=== PATIENT | female | born 1965 | race Caucasian/White ===

== ENCOUNTER 2024-05-12 12:06 | Emergency (ER) | payer OTHER, SELFPAY ==
[2024-05-12] VITALS (11 sets, daily range): BP systolic 170–194; BP diastolic 96–132; PULSE 65–88; RESP 16–18; TEMP 36.7; O2SAT 92–98; BMI 27.8
--- NOTE | 2024-05-12 12:13 | CTR_ITS ---
PROCEDURE INFORMATION: Exam: CT Head Without Contrast Exam date and time: 05/12/2024 12:06 PM Age: 59 years old Clinical indication: Stroke-like symptoms; Right facial droop; Additional info: AMS TECHNIQUE: Imaging protocol: Computed tomography of the head without contrast. Radiation optimization: All CT scans at this facility use at least one of these dose optimization techniques: automated exposure control; mA and/or kV adjustment per patient size (includes targeted exams where dose is matched to clinical indication); or iterative reconstruction. Other technique: STROKE PROTOCOL was implemented. COMPARISON: No relevant prior studies available. RADIATION DOSE METRICS: Total DLP (mGy-cm): 1041.08 FINDINGS: Brain: Diffuse cerebral atrophy. No hemorrhage. No evidence of acute territorial infarction. Evidence of chronic right basal ganglia infarct with asymmetrically small size and adjacent lateral ventricle ex vacuo dilatation. Marked diffuse bilateral cerebral white matter hypoattenuation. There is a heterogeneously calcified parasagittal posterior right frontal lobe mass appearing to involve the cortex measuring approximately 2.0 x 1.5 x 1.5 cm (AP x TV x CC) on axial image 46 of series 12 and coronal image 32 of series 13. There is also a 2.1 x 1.8 x 1.5 cm (TV x AP x CC) mass in the region of the hypothalamus. No midline shift. Cerebral ventricles: Ventricles are in proportion to the degree of atrophy with ex vacuo dilatation of the right lateral ventricle adjacent to diminutive basal ganglia. Paranasal sinuses: Visualized sinuses are unremarkable. No fluid levels. Mastoid air cells: Visualized mastoid air cells are well aerated. Bones: Unremarkable. No acute fracture. Soft tissues: Unremarkable. Vasculature: Bilateral ICA and vertebral artery calcifications. CT/CT head thrombolytic [id number] IMPRESSION: 1. No CT evidence of acute territorial infarction or hemorrhage. No midline shift. 2. Approximately 2 cm partially calcified parasagittal posterior right frontal lobe mass appearing to involve the cortex. 3. Approximately 2.1 cm mass in the region of the hypothalamus may represent hamartoma. 4. Marked diffuse bilateral cerebral white matter hypoattenuation. 5. Evidence of chronic right basal ganglia infarct. Recommend brain MRI without and with contrast to further evaluate above findings. ASSESSMENT: ASPECTS ([place] Stroke Program Early CT Score) is 10.
--- NOTE | 2024-05-12 12:28 | XRR_ITS ---
PROCEDURE INFORMATION: Exam: XR Chest Exam date and time: 05/12/2024 12:52 PM Age: 59 years old Clinical indication: Dyspnea; Additional info: CVA symptoms TECHNIQUE: Imaging protocol: Radiologic exam of the chest. Views: 1 view. COMPARISON: No relevant prior studies available. FINDINGS: Lungs: Unremarkable. No consolidation. Pleural spaces: Unremarkable. No pleural effusion. No pneumothorax. Heart/Mediastinum: Unremarkable. No cardiomegaly. Bones/joints: Mild degenerative disease of bilateral acromioclavicular joints. Right rotator cuff calcific tendinosis. Mild curvature of the thoracic spine convex to the right. XR/XR chest 1V portable [id number] IMPRESSION: No acute cardiopulmonary process.
--- NOTE | 2024-05-12 12:28 | CTR_ITS ---
PROCEDURE INFORMATION: Exam: CTA Head With Contrast, Arteriography Exam date and time: 05/12/2024 1:49 PM Age: 59 years old Clinical indication: Other: Msc; Patient HX: CVA symptoms; Lkwt 10:45 today; No known trauma/injury TECHNIQUE: Imaging protocol: Computed tomographic angiography of the head with contrast. Exam focused on the arteries. 3D rendering (Not supervised by radiologist): MIP and/or 3D reconstructed images were created by the technologist. Radiation optimization: All CT scans at this facility use at least one of these dose optimization techniques: automated exposure control; mA and/or kV adjustment per patient size (includes targeted exams where dose is matched to clinical indication); or iterative reconstruction. Contrast material: OMNIPAUQE 350; Contrast volume: 100 ml; Contrast route: INTRAVENOUS (IV); COMPARISON: CT head thrombolytic [id number] 05/12/2024 12:06 PM RADIATION DOSE METRICS: Total DLP (mGy-cm): 373.32 FINDINGS: ANTERIOR CIRCULATION: Right internal carotid artery: Calcified atheroma of the cavernous right ICA but no significant stenosis. Right middle cerebral artery: No occlusion or significant stenosis. No aneurysm. Right anterior cerebral artery: No occlusion or significant stenosis. No aneurysm. Left internal carotid artery: Intracranial segment is patent with no significant stenosis. No aneurysm. Left middle cerebral artery: No occlusion or significant stenosis. No aneurysm. Left anterior cerebral artery: No occlusion or significant stenosis. No aneurysm. POSTERIOR CIRCULATION: Right vertebral artery: Calcified atheroma of the V4 segment of the right vertebral artery with mild stenosis. Left vertebral artery: Calcified atheroma of the V4 segment of the left vertebral artery with severe stenosis. Basilar artery: No occlusion or significant stenosis. No aneurysm. Right posterior cerebral artery: No occlusion or significant stenosis. No aneurysm. Left posterior cerebral artery: No occlusion or significant stenosis. No aneurysm. Brain: Redemonstrated the 2.1 cm partially calcified parasagittal mass along the right frontal lobe. Stable 2.1 cm mass in the hypothalamic region. Chronic ischemic small vessel disease. Chronic right basal ganglia infarct. No recent infarct, or intracranial bleed. Cerebral ventricles: Mild ex vacuo dilatation of the right lateral ventricle. Bones/joints: Unremarkable. No acute fracture. Soft tissues: Unremarkable. PROCEDURE INFORMATION: Exam: CTA Neck With Contrast Exam date and time: 05/12/2024 1:49 PM Age: 59 years old Clinical indication: Other: Msc; Patient HX: CVA symptoms; Lkwt 10:45 today; No known trauma/injury TECHNIQUE: Imaging protocol: Computed tomographic angiography of the neck with contrast. Exam focused on the cervical segments of the vasculature. 3D rendering (Not supervised by radiologist): MIP and/or 3D reconstructed images were created by the technologist. Radiation optimization: All CT scans at this facility use at least one of these dose optimization techniques: automated exposure control; mA and/or kV adjustment per patient size (includes targeted exams where dose is matched to clinical indication); or iterative reconstruction. Contrast material: OMNIPAUQE 350; Contrast volume: 100 ml; Contrast route: INTRAVENOUS (IV); COMPARISON: CT head thrombolytic [id number] 05/12/2024 12:06 PM RADIATION DOSE METRICS: Total DLP (mGy-cm): 373.32 FINDINGS: Right common carotid artery: No stenosis. No dissection or occlusion. Right internal carotid artery: No stenosis of the extracranial segment. No dissection or occlusion. Right external carotid artery: No occlusion or stenosis of the origin. Left common carotid artery: No stenosis. No dissection or occlusion. Left internal carotid artery: Calcified atheroma of the proximal left ICA but no significant stenosis. Left external carotid artery: No occlusion or stenosis of the origin. Right vertebral artery: No stenosis. No dissection or occlusion. Left vertebral artery: No stenosis. No dissection or occlusion. Soft tissues: Normal. No significant soft tissue swelling. Bones/joints: Multilevel posterior osteophyte disc complexes at C4-C5, C5-C6 and C6-C7 with mild bony canal stenosis. CT/CT angio headneck* [id number] IMPRESSION: No large vessel occlusion. IMPRESSION: No significant stenosis. REFERENCES: NASCET CRITERIA. The degree of stenosis in the cervical segment of the internal carotid artery is based on NASCET criteria. Normal is no stenosis. Mild is less than 50% stenosis. Moderate is 50-69% stenosis. Severe is 70% to 99% stenosis. Total occlusion is no detectable patent lumen.
--- NOTE | 2024-05-12 12:29 | ECG_ITS ---
[facility] Test Date: 2024-05-12 Pat Name: Katia Valadez Department: Room: Gender: Female [employer]er [employer]: : 1965 Requested By: Timoteo Oliveira Order Number: [id number] Reading MD: JAIME MARTÍNEZ Measurements Intervals [place]ard Rate: 63 P: 37 LA: 211 QRS: 2 QRSD: 105 T: 19 QT: 386 QTc: 396 Interpretive Statements SINUS RHYTHM WITH FIRST DEGREE AV BLOCK No previous ECG available for comparison Electronically Signed On 05-12-2024 20:22:11 CDT by JAIME MARTÍNEZ [id number]
[2024-05-12 12:45] LABS: Basophils % 0.6 %; Eosinophils % 0.6 %; Hematocrit 34.3 % (36-47); Lymphocytes # 1.3 10^3/uL (0.8-4.8); Mean Corpuscular HGB Conc 33.8 g/dL (30-55); Mean Corpuscular Hemoglobin 32.4 pg (27-33); Mean Corpuscular Volume 95.8 fl (85-98); Mean Platelet Volume 10.7 fL (7.4-10.4); Monocytes # 0.4 10^3/uL (0.2-0.9); Monocytes % 5.7 %; Neutrophils # 5.27 10^3/uL (1.8-7.7); Neutrophils % 74.7 %; Nucleated Red Blood Cells % 0 %; Platelet Count 240 10^3/cmm (157-399); Red Blood Count 3.58 10^6/uL (3.85-5.65); Red Cell Distribution Width 12.2 % (12.1-15.1); White Blood Count 7.05 10^3/uL (3.29-11.43)
[2024-05-12 12:56] LABS: INR 0.92 (0.8-1.2); Partial Thromboplastin Time 24.8 SECONDS (23.9-36.7)
[2024-05-12] MEDS: labetalol 5 mg/mL SDV 20mL 10 MG IV (12:58)
[2024-05-12] MEDS: sodium chloride 0.9% 1,000 ML 999 ML IV (12:59)
--- NOTE | 2024-05-12 12:59 | W.ED.NEUROSD ---
HPI - Neuro Symptoms/Deficit General: Chief Complaint: Neuro Symptoms/Deficit Stated Complaint: LEFT WEAKNESS Time Seen by Provider: 05/12/24 12:15 History of Present Illness: 59-year-old female presents emergency department chief complaint of stroke activation prior to arrival apparently the patient's significant other boyfriend reported that patient was having seizure-like activity which upon EMSs arrival to the residence patient was unresponsive difficulty following commands with right sided flaccid paralysis of the right arm and right leg with left-sided facial droop patient has a history of remote stroke a proximal 11 years ago with no residual deficits patient is on no blood thinning agents most my history is provided through the patient and the nurse present. Patient symptoms are rapidly improving she has no current drift in her arm or leg on my exam just generalized weakness and fatigue a little bit of left-sided facial droop patient has had no recent trauma or injury or any recent headaches patient presents to the emergency department for further assessment and management. Currently the patient is having issues with difficulty with word finding some slurred speech otherwise reporting no other associated symptoms. Related Data Allergies Allergy/AdvReac Type Severity Reaction Status Date / Time Penicillins Allergy Unknown Verified 05/12/24 12:41 Review of Systems General: Reports: ROS unobtainable due to medical condition and ROS unobtainable due to mental status Physical Exam Const: COMMON NORMALS: no acute distress and healthy appearing; negative for patient oriented x3 (Alert oriented x 2 patient had a little bit of slurred speech appreciated) HENMT: COMMON NORMALS: normocephalic and atraumatic HEAD & SCALP: normocephalic and atraumatic Eye: COMMON NORMALS: Equal, round and reactive pupils present and EOMs intact bilaterally PUPIL: Yes Equal, round and reactive pupils present Neck/C-Spine: COMMON NORMALS: full ROM, supple and no JVD Lymph: LYMPHATIC: no lymphadenopathy noted Chest: COMMONS NORMALS: normal inspection of the chest and normal palpation of entire chest wall Resp: COMMON NORMALS: normal respiratory effort, No retractions and clear to auscultation bilaterally EFFORT & INSPECTION: Yes able to speak in complete sentences and Yes symmetric chest movement AUSCULTATION: clear to auscultation bilaterally Cardio: COMMON NORMALS: no JVD, regular rate and regular rhythm RATE: regular rate RHYTHM: regular rhythm GI: COMMON NORMALS: Normal to inspection, nondistended, normoactive bowel sounds present, Soft to palpation and non-tender INSPECTION: Yes normal to inspection PALPATION: Yes Soft to palpation : COMMON NORMALS: Yes no CVA tenderness BLADDER/KIDNEY EXAM: Yes no CVA tenderness Back/Pelvis: COMMON NORMALS: no CVA tenderness Extremity: COMMON NORMALS: normal to inspection (Mild weakness appreciated to the right arm and right leg but no droop appre) and full ROM; negative for no pedal edema Neuro: COMMON NORMALS: CN's II-XII intact bilaterally, moves all extremities and no focal motor deficits; negative for patient oriented x3 (Alert oriented x 2 patient had a little bit of slurred speech appreciated) Psych: COMMON NORMALS: mental status grossly normal, Normal thought process present, cooperative and normal affect (Left-sided facial droop appreciated mild) THOUGHT PROCESS: Normal thought process present Skin: COMMON NORMALS: no rashes or lesions noted GENERAL SKIN EXAM: no rashes or lesions noted Course Vital Signs: Vital signs: Vital Signs Temperature 98.0 F 05/12/24 12:24 Pulse Rate 88 05/12/24 15:49 Respiratory Rate 18 05/12/24 12:24 Blood Pressure 170/96 05/12/24 15:49 Pulse Oximetry 95 05/12/24 15:49 Oxygen Delivery Me thod Room Air 05/12/24 15:49 MDM - Neuro Symptoms/Deficit Medical Decision Making Upon patient's arrival she was considered a level 1 stroke activation patient symptoms rapidly improved patient's initial NIH was 11 followed by 9 followed by 4 patient is currently on my exam has minimal weakness not located to the right arm right leg but no obvious drift with limited left-sided facial droop with mild confusion CT imaging the head without contrast revealed a calcified brain mass noted a frontal parietal region I do not believe the patient will be a TNKase candidate due to this and her rapidly improving symptoms will be contacting [facility] neurology for further evaluation management CT angiogram of the head and neck will be obtained for further eval. The patient remained in stable condition at this time. 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 patient's symptoms are continue to improve per neurologist request contacted local trauma center and stroke center for referral to neurosurgery [facility] discussed patient's case with Dr.'s Maher neurosurgeon that recommends 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 Lab Data 05/12/24 12:33 05/12/24 12:[address] 05/12/24 12:13 IMPRESSION: 1. No CT evidence of acute territorial infarction or hemorrhage. No midline shift. 2. Approximately 2 cm partially calcified parasagittal posterior right frontal lobe mass appearing to involve the cortex. 3. Approximately 2.1 cm mass in the region of the hypothalamus may represent hamartoma. 4. Marked diffuse bilateral cerebral white matter hypoattenuation. 5. Evidence of chronic right basal ganglia infarct. Recommend brain MRI without and with contrast to further evaluate above findings. ASSESSMENT: ASPECTS ([place] Stroke Program Early CT Score) is 10. ADDENDUM: 05/12/24 1246 THIS REPORT CONTAINS FINDINGS THAT MAY BE CRITICAL TO PATIENT CARE. The findings were verbally communicated via telephone conference with RODY LEON at 12:44 PM CDT on 05/12/2024. The findings were acknowledged and understood. Chest X-Ray 05/12/24 12:28 IMPRESSION: No acute cardiopulmonary process. Head/Neck CTA 05/12/24 12:28 IMPRESSION: No large vessel occlusion. IMPRESSION: No significant stenosis. REFERENCES: NASCET CRITERIA. The degree of stenosis in the cervical segment of the internal carotid artery is based on NASCET criteria. Normal is no stenosis. Mild is less than 50% stenosis. Moderate is 50-69% stenosis. Severe is 70% to 99% stenosis. Total occlusion is no detectable patent lumen. Laboratory Results WBC 7.05 10^3/uL (3.29-11.43) 05/12/24 12:33 RBC 3.58 10^6/uL (3.85-5.65) L 05/12/24 12:33 Hgb 11.60 g/dL (11.27-16.99) 05/12/24 12:33 Hct 34.3 % (36-47) L 05/12/24 12:33 MCV 95.8 fl (85-98) 05/12/24 12:33 MCH 32.4 pg (27-33) 05/12/24 12: MCHC 33.8 g/dL (30-55) 05/12/24 12:33 RDW 12.2 % (12.1-15.1) 05/12/24 12:33 Plt Count 240 10^3/cmm (157-399) 05/12/24 12: MPV 10.7 fL (7.4-10.4) H 05/12/24 12:33 Neut % (Auto) 74.7 % 05/12/24 12: Lymph % (Auto) 18.0 % 05/12/24 12: [place] % (Auto) 5.7 % 05/12/24 12:33 Eos % (Auto) 0.6 % 05/12/24 12:33 Baso % (Auto) 0.6 % 05/12/24 12:33 Neut # (Auto) 5.27 10^3/uL (1.8-7.7) 05/12/24 12: Lymph # (Auto) 1.3 10^3/uL (0.8-4.8) 05/12/24 12:33 [place] # (Auto) 0.4 10^3/uL (0.2-0.9) 05/12/24 12: Eos # (Auto) 0.0 10^3/uL (0.0-0.8) 05/12/24 12: Baso # (Auto) 0.0 10^3/uL (0.0-0.1) 05/12/24 12: Nucleated RBC % (auto) 0 % 05/12/24 12: Nucleated RBCs # 0.0 /100WBC 05/12/24 12:33 PT 12.60 SECONDS (12.1-14.9) 05/12/24 12:33 INR 0.92 (0.8-1.2) 05/12/24 12:33 APTT 24.8 SECONDS (23.9-36.7) 05/12/24 12:33 Sodium 138 mmol/L (136-145) 05/12/24 12:33 Potassium 4.1 mmol/L (3.5-5.1) 05/12/24 12:33 Chloride 104 mmol/L (98-107) 05/12/24 12:33 Carbon Dioxide 21 mmol/L (22-29) L 05/12/24 12:33 Anion Gap 17.1 (5-19) 05/12/24 12:33 BUN 24 mg/dL (6-20) H 05/12/24 12:33 Creatinine 1.0 mg/dL (0.5-0.9) H 05/12/24 12:33 GFR Calculation 56.7 mL/min (90-130) L 05/12/24 12:33 Glucose 129 mg/dL (65-115) H 05/12/24 12:33 POC Glucose 143 mg/dL (70-110) H 05/12/24 14:07 Calculated Osmolality 292 mOsm/kg (285-295) 05/12/24 12:33 Calcium 9.9 mg/dL (8.5-10.5) 05/12/24 12:33 Total Bilirubin 0.5 mg/dL (0.15-1.2) 05/12/24 12:33 AST 12 U/L (0-32) 05/12/24 12:33 ALT 7 U/L (0-33) 05/12/24 12:33 Alkaline Phosphatase 65 U/L (35-105) 05/12/24 12:33 Total Protein 6.3 g/dL (6.6-8.7) L 05/12/24 12:33 Albumin 3.9 g/dL (3.5-5.2) 05/12/24 12:33 Globulin 2.4 g/dL (1.3-4.6) 05/12/24 12:33 Urine Color Yellow (Yellow) 05/12/24 14:15 Urine Appearance Clear (CLEAR) 05/12/24 14:15 Urine pH 6.5 (5-7) 05/12/24 14:15 Ur Specific [place] 1.018 (1.005-1.030) 05/12/24 14:15 Urine Protein Negative (Negative) 05/12/24 14:15 Urine Glucose (UA) Negative (Normal) 05/12/24 14:15 Urine Ketones Negative (Negative) 05/12/24 14:15 Urine Blood Negative (Negative) 05/12/24 14:15 Urine Nitrate Negative (Negative) 05/12/24 14:15 Urine Bilirubin Negative (Negative) 05/12/24 14:15 Urine Urobilinogen 0.2 mg/dL (Negative) 05/12/24 14:15 Ur Leukocyte Esterase Negative (Negative) 05/12/24 14:15 Urine RBC 0-2 /hpf (0-2) 05/12/24 14:15 Urine WBC 0-5 /hpf (0-5) 05/12/24 14:15 Ur Squamous Epith Cells 0-5 /hpf (0-5) 05/12/24 14:15 Amorphous Sediment Not Reportable 05/12/24 14:15 Urine Bacteria None seen /hpf (NONE) 05/12/24 14:15 Hyaline Casts 0.40 /lpf 05/12/24 14:15 Urine Opiates Screen Negative ng/mL (Negative) 05/12/24 14:15 Ur Barbiturates Screen Negative ng/mL (Negative) 05/12/24 14:15 Ur Phencyclidine Scrn Negative ng/mL (Negative) 05/12/24 14:15 Ur Amphetamines Screen Negative ng/mL (Negative) 05/12/24 14:15 U Benzodiazepines Scrn Negative ng/mL (Negative) 05/12/24 14:15 Urine Cocaine Screen Negative ng/mL (Negative) 05/12/24 14:15 U Marijuana (THC) Screen Negative ng/mL (Negative) 05/12/24 14:15 XR interpretation done by ED provider, pending radiology final review Discharge Plan Discharge Patient Disposition: Xfer Short-Term Hosp Clinical Impression: Mass of temporoparietal region of brain, Seizure Condition: Stable Coding Level of Care Code ED Environmental Journalist for Frankie Samano
[2024-05-12 13:00] LABS: Alanine Aminotransferase 7 U/L (0-33); Albumin Level 3.9 g/dL (3.5-5.2); Alkaline Phosphatase 65 U/L (35-105); Anion Gap 17.1 (5-19); Aspartate Amino Transferase 12 U/L (0-32); Blood Urea Nitrogen 24 mg/dL (6-20); Calcium 9.9 mg/dL (8.5-10.5); Carbon Dioxide 21 mmol/L (22-29); Chloride 104 mmol/L (98-107); Globulin 2.4 g/dL (1.3-4.6); Glomerular Filtration Rate 56.7 mL/min (90-130); Glucose 129 mg/dL (65-115); Osmolality Calculated 292 mOsm/kg (285-295); Potassium 4.1 mmol/L (3.5-5.1); Sodium 138 mmol/L (136-145); Total Bilirubin 0.5 mg/dL (0.15-1.2); Total Protein 6.3 g/dL (6.6-8.7)
[2024-05-12 13:35] LABS: Creatinine Clr Calc Pharmacy 55.1374
[2024-05-12] MEDS: iohexol 350 mg/mL 500 mL Btl (per mL) IV (13:56)
[2024-05-12] MEDS: levETIRAcetam 1,000 MG/100 ML PREMIX 400 MG IV (14:15)
[2024-05-12 14:19] LABS: Charge for UA Resulting for Rev
[2024-05-12 14:21] LABS: Bilirubin Urine Negative (Negative); Blood Urine Negative (Negative); Glucose Urine UA Negative (Normal); Ketones Urine Negative (Negative); Leukocyte Esterase Urine Negative (Negative); Nitrate Urine Negative (Negative); Protein Urine Negative (Negative); Specific Gravity, Urine 1.018 (1.005-1.030); Urine Appearance Clear (CLEAR); Urine Color Yellow (Yellow); Urobilinogen Urine 0.2 mg/dL (Negative); pH Urine 6.5 (5-7)
[2024-05-12 14:26] LABS: Bacteria Urine None Seen /hpf; RBC Urine 0-2 /hpf (0-2); Squamous Epithelial Cell Urine 0-5 /hpf (0-5); WBC Urine 0-5 /hpf (0-5)
[2024-05-12 14:31] LABS: Amphetamines Screen Urine Negative (Negative); Barbiturates Screen Urine Negative (Negative); Benzodiazepines Screen Urine Negative (Negative); Cocaine Screen Urine Negative (Negative); Opiate Screen Urine Negative (Negative); PCP Screen Urine Negative (Negative); THC Screen Urine Negative (Negative)
--- NOTE | 2024-05-12 14:57 | PC.NURSE ---
PER VERBAL ORDER FROM DR. DEJESUS, ADMIN HYDRALAZINE 10MG ONCE IVP.
[2024-05-12] MEDS: hyDRALAzine 20 mg/mL INJ 1 mL 10 MG IVP (15:05)
[2024-05-12 15:09] LABS: Glucose Point of Care 143 mg/dL (70-110)
[2024-05-13] VITALS: BP 196/98; PULSE 75; RESP 15; O2SAT 95
[2024-05-13 01:47] VITALS: BP 178/103; PULSE 63; RESP 16; O2SAT 95
[2024-05-13] MEDS: nicardipine 20 MG/200 ML PREMIX 50 MG IV (02:37)
[2024-05-13 02:38] VITALS: BP 222/111; PULSE 60; RESP 16; O2SAT 94
[2024-05-13 03:06] VITALS: BP 161/92; PULSE 76; O2SAT 91
--- NOTE | 2024-05-13 03:52 | PC.NURSE ---
Pt's nicardipine drip was continued by [facility] upon transfer to [facility].
== END 2024-05-13 03:56 | disposition short-term general hospital (02) ==
PROVIDERS: Emergency Provider Emergency Medicine
DX: R56.9 Unspecified convulsions (principal); G93.89 Other specified disorders of brain
CPT/HCPCS: 36416; 70450; 70496; 70498; 71045; 80053; 80306; 81003; 81015; 82962; 85025; 85610; 85730; 93005; 96365; 96375; 99291; 99292; J0360; J1953; J3490; J7030; Q9967